=== PATIENT | female | born 1995 | race Asian ===

== ENCOUNTER 2016-09-29 19:01 | Emergency (ER) | payer OTHER ==
[2016-09-29 19:14] VITALS: BP 114/79
--- NOTE | 2016-09-29 19:46 | UC ---
jerome Norwood Timothy, scribed for Edith Damian MD on 09/29/16 at 1920 . Skin Complaint HPI - HPI Summary HPI Summary: Mai Boyd is a 21 yo female presenting to [facility] with diffuse, , red, pruritic rash all over her body since 09/28/16. Pt presents with her mother. Pt had her wisdom teeth removed 09/19 on the left and 09/27 had right sided removed. Pt was on a course of abx staring and a second round starting on . Local anaesthetic was used. When patient developed rash yesterday, she discontinued the abx. PT states rash improving slightly today. No facial edema. No difficulty swallowing. no intra-oral swellig ither than at site of dental extraaction. She states that her itchiness is aggravated by contact with water. She denies N/V, fever, chills, CP, SOB. She denies any knowledge of medication allergy. No known family hx or pcn allergy. reports little dental pain. taking APAP. She denies any PMHx. Pt medication list reviewed this visit. She does not have a follow up appointment scheduled with her dentist. Pt medication list reviewed this visit - History of Current Complaint Chief Complaint: UCRash Time Seen by Provider: 09/29/16 19:28 Stated Complaint: RASH Hx Obtained From: Patient Hx Last Menstrual Period: 09/01/16 Onset/Duration: Gradual Onset, Lasting Days, Still Present Skin Exposure Onset/Duration: Days Ago Timing: Constant Onset Severity: Moderate Current Severity: Moderate Location: Diffuse Character: Pruritus, Redness Aggravating: Wet Conditions Associated Signs & Symptoms: Positive: Rash. Negative: Nausea, Vomiting - Allergy/Home Medications Allergies/Adverse Reactions: Allergies Allergy/AdvReac Type Severity Reaction Status Date / Time No Known Allergies Allergy Unverified 08/30/13 10:18 Home Medications: Home Medications Acetaminophen [Eq Acetaminophen] 1,000 mg PO 09/29/16 [History] Amoxicillin PO (*) [Amoxicillin 500 MG CAP*] 500 mg PO TID 09/29/16 [History Confirmed 09/29/16] Review of Systems Constitutional: Negative Skin: Rash - diffuse Eyes: Negative ENT: Negative Respiratory: Negative Cardiovascular: Negative Gastrointestinal: Negative Genitourinary: Negative Motor: Negative Neurovascular: Negative Musculoskeletal: Negative Neurological: Negative Psychological: Negative All Other Systems Reviewed And Are Negative: Yes PMH/Surg Hx/FS Hx/Imm Hx Previously Healthy: Yes - Surgical History Surgical History: Yes Surgery Procedure, Year, and Place: wisdom teeth removed - Family History Known Family History: Negative: Cardiac Disease, Hypertension, Diabetes - Social History Lives: With Family Alcohol Use: None Substance Use Type: None Smoking Status (MU): Never Smoked Tobacco Physical Exam Triage Information Reviewed: Yes Appearance: Well-Appearing, No Pain Distress, Well-Nourished Vital Signs: Initial Vital Signs Temp 99.1 F 09/29/16 19:09 Pulse 90 09/29/16 19:09 Resp 18 09/29/16 19:09 BP 114/79 09/29/16 19:09 Pulse Ox 99 09/29/16 19:09 Vital Signs Reviewed: Yes Eye Exam: Normal Eyes: Negative: Conjunctiva Inflamed, Discharge ENT Exam: Other - Pt with facial asymmetry - edema right sided edema s/p dental extraction No intra-oral edema, uvula midline, no exudate ENT: Positive: TMs normal Dental: Positive: Other: - edema right side face at area of wisdom teeth Neck exam: Normal Neck: Positive: Supple, Nontender, No Lymphadenopathy Respiratory Exam: Normal Respiratory: Positive: Chest non-tender, Lungs clear, Normal breath sounds, No respiratory distress, No accessory muscle use Cardiovascular Exam: Normal Cardiovascular: Positive: RRR, No Murmur, Pulses Normal Abdominal Exam: Normal Abdomen Description: Positive: Nontender, No Organomegaly, Soft Bowel Sounds: Positive: Present Musculoskeletal Exam: Normal Neurological Exam: Normal Neurological: Positive: Alert Psychological Exam: Normal Psychological: Positive: Normal Response To Family Skin: Positive: Other - Pt with diffuse, macular rash - b/l hands, forearms, back, legs Non-prurtic, no vescile, no weeping Re-Evaluation - Re-Evaluation First Eval Re-Evaluation Time: 19:34 Change: Unchanged Course/Dx - Course Course Of Treatment: Mai Boyd is a 21 yo female presenting to [facility] with diffuse, red, pruritic rash all over her body, concerned the amoxicillin she was Rx S/P wisdom teeth removal may be causing it. Pt discontinued abx yesterday. recommend not resuming. recommend follow-up with dentist tomorrow. avoid NSAID. avoid heat. return prn. Pt and mom comfortable and in agreement with plan. return precautions discussed. After clinical examination she will be discharged home with appropriate instructions and follow up. - Differential Diagnoses - Skin Complaint Differential Diagnoses: Allergic Reaction, Medication; Adverse Reaction - Diagnoses Provider Diagnoses: drug eruption rash Discharge - Discharge Plan Condition: Stable Disposition: HOME Patient Education Materials: Antibiotic Medication Allergy (ED) Referrals: Gavin Higginbotham MD [Primary Care Provider] - 2 Days Additional Instructions: it is recommended you do not restart this medication AVoid getting over heated (hot showers, hot tubs, vigorous exercise for the next 2-3 days Okay to take tylenol (acetaminophen) AVoid ibuprofen (Advil, motrin) Contact your dentist to discuss need for futher antibiotics you should list Amoxicillin as an allergy if you develop worsening rash, difficulty breathing, difficulty swallowing or any other concerns- call your doctor or go directly to the emergency department The documentation as recorded by the jerome arrington Timothy accurately reflects the service I personally performed and the decisions made by me, Edith Damian MD.
== END 2016-09-29 19:55 | disposition home or self-care (01) ==
LOC: UCEAST 19:01
DX: L27.1 Localized skin eruption due to drugs and medicaments taken internally (principal)
CPT/HCPCS: 99201; G0463

== ENCOUNTER 2018-02-01 13:26 | Emergency (ER) | payer OTHER ==
--- NOTE | 2018-02-01 13:45 | UC ---
Abdominal Pain Female HPI - HPI Summary HPI Summary: 22 yo female presents with 2 days of vomiting. She tells me that 2 days ago she felt nauseous throughout the day and vomited once or twice later that night. Yesterday was vomiting many times throughout the day...seemed to be at least once an hour, but she is unsure. She was unable to eat or drink yesterday. Today has had some sips of water, but no solid food. Her vomiting has continued today about 3-4 times this morning. Has had some loose stools yesterday and today. She denies headache, dizziness, SOB, chest pain, abdominal pain, dysuria. LMP was 4 days ago and denies sexual activity. - History of Current Complaint Stated Complaint: VOMITING Time Seen by Provider: 02/01/18 13:45 Hx Obtained From: Patient Hx Last Menstrual Period: 09/01/16 Onset/Duration: Sudden Onset Severity Currently: None Allergies/Adverse Reactions: Allergies Allergy/AdvReac Type Severity Reaction Status Date / Time amoxicillin Allergy Intermediate Rash Verified 02/01/18 13:47 PMH/Surg Hx/FS Hx/Imm Hx - Additional Past Medical History Additional PMH: None - Surgical History Surgical History: Yes Surgery Procedure, Year, and Place: wisdom teeth removed - Family History Known Family History: Negative: Cardiac Disease, Hypertension, Diabetes - Social History Occupation: Student Lives: Dormitory/Roommates Alcohol Use: None Substance Use Type: None Smoking Status (MU): Never Smoked Tobacco Review of Systems All Other Systems Reviewed And Are Negative: Yes Constitutional: Positive: Negative Skin: Positive: Negative Eyes: Positive: Negative ENT: Positive: Negative Respiratory: Positive: Negative Cardiovascular: Positive: Negative Gastrointestinal: Positive: Vomiting, Nausea Genitourinary: Positive: Negative Musculoskeletal: Positive: Negative Neurological: Positive: Negative Psychological: Positive: Negative Physical Exam - Summary Physical Exam Summary: GENERAL: Mildly ill appearing. Lips and mouth mildly dry. SKIN: No rashes, sores, lesions, or open wounds. NECK: Supple. Nontender. No lymphadenopathy. CHEST: CTAB. No r/r/w. No accessory muscle use. Breathing comfortably and in no distress. CV: RRR. Without m/r/g. Pulses intact. Cap refill <2seconds ABDOMEN: Soft. NTTP. No distention or guarding. No CVA tenderness. Bowel sounds present NEURO: Alert. PSYCH: Age appropriate behavior. Triage Information Reviewed: Yes Vital Signs: Vital Signs (72 hours) 02/01/18 13:42 Temperature 99.1 F Pulse Rate 91 Respiratory 20 Rate Blood Pressure 136/87 (mmHg) O2 Sat by Pulse 98 Oximetry Laboratory Tests 02/01/18 14:52 POC Urine Color Yellow POC Urine Clarity Clear POC Urine pH 5.5 POC Ur Specif [place] 1.020 POC Urine Protein Negative POC Ur Glucose (UA) Negative POC Urine Ketones Negative POC Urine Blood 2+ A POC Urine Nitrite Negative POC Urine Bilirubin Negative POC Urine Urobilinogen 0.2 POC U Leukocyte Esteras Trace A Vital Signs Reviewed: Yes Re-Evaluation - Re-Evaluation First Eval Re-Evaluation Time: 14:57 Change: Improved Comment: Smiling. Much improved. Feels much better and no vomiting in last 45 minutes Abd Pain Female Course/Dx - Course Course Of Treatment: In the clinic pt was given 1L of NS and 4mg of Zofran IV. On recheck she reported feeling much better. Appeared to be in better spirits and was smiling. She did not have any episodes of vomiting since Zofran was administered. Her UA showed trace leuks, but she is having no urinary symptoms - will send for urine culture and tx if needed. She will be dc'd with dx of gastroenteritis and rx for Zofran. Advised to start with sips of clear fluids/ water and slowly advanced diet as tolerated with BRAT diet. If her symptoms worsen or persist to go to the ED. Pt voiced understanding and is in agreement with the plan. - Differential Dx/Diagnosis Provider Diagnoses: gastroenteritis Discharge - Sign-Out/Discharge Documenting (check all that apply): Patient Departure All imaging exams completed and their final reports reviewed: No Studies - Discharge Plan Condition: Stable Disposition: HOME Prescriptions: Ondansetron ODT TAB* [Zofran 4 MG Odt TAB*] 4 mg PO Q6H PRN #16 tab.odt PRN Reason: Nausea Patient Education Materials: Gastroenteritis (ED) Referrals: No Primary Care Phys,NOPCP [Primary Care Provider] - Additional Instructions: If you develop a fever, shortness of breath, chest pain, new or worsening symptoms - please call your PCP or go to the ED. - Billing Disposition and Condition Condition: STABLE Disposition: Home
[2018-02-01 13:46] VITALS: BP 136/87
[2018-02-01] MEDS ORDERED: NS 0.9% 1000 ML* 1,000 ML IV ONE (13:54)
[2018-02-01] MEDS ORDERED: Ondansetron INJ* 2 MG/ML VIAL IV ONE (13:54)
--- NOTE | 2018-02-03 15:17 | ED ---
Progress - Progress Note Progress Note: Urine culture final report : No growth of clinically significant organisms. She was not prescribed any antibiotics. No change in plan . Please inform patient She does have microscopic hematuria on UA, so she should follow up with PCP Re-Evaluation - Re-Evaluation First Eval Re-Evaluation Time: 14:57 Change: Improved Comment: Smiling. Much improved. Feels much better and no vomiting in last 45 minutes Course/Dx - Course Course Of Treatment: In the clinic pt was given 1L of NS and 4mg of Zofran IV. On recheck she reported feeling much better. Appeared to be in better spirits and was smiling. She did not have any episodes of vomiting since Zofran was administered. Her UA showed trace leuks, but she is having no urinary symptoms - will send for urine culture and tx if needed. She will be dc'd with dx of gastroenteritis and rx for Zofran. Advised to start with sips of clear fluids/ water and slowly advanced diet as tolerated with BRAT diet. If her symptoms worsen or persist to go to the ED. Pt voiced understanding and is in agreement with the plan. Discharge - Sign-Out/Discharge Documenting (check all that apply): Post-Discharge Follow Up All imaging exams completed and their final reports reviewed: No Studies - Discharge Plan Condition: Stable Disposition: HOME Prescriptions: Ondansetron ODT TAB* [Zofran 4 MG Odt TAB*] 4 mg PO Q6H PRN #16 tab.odt PRN Reason: Nausea Patient Education Materials: Gastroenteritis (ED) Referrals: No Primary Care Phys,NOPCP [Primary Care Provider] - Additional Instructions: If you develop a fever, shortness of breath, chest pain, new or worsening symptoms - please call your PCP or go to the ED. - Billing Disposition and Condition Condition: STABLE Disposition: Home
== END 2018-02-01 15:05 | disposition home or self-care (01) ==
LOC: UCEAST 13:26
DX: K52.9 Noninfective gastroenteritis and colitis, unspecified (principal); Z88.0 Allergy status to penicillin
CPT/HCPCS: 81003; 87086; 96360; 96374; 99212; G0463; J2405